=== PATIENT | male | born 1965 | race Caucasian/White ===

== ENCOUNTER 2020-02-07 10:08 | Emergency (ER) | payer MEDICAID ==
[~2020-02-07] VITALS: Ht 162.6 cm; Wt 77.1 kg
[2020-02-07 10:11] VITALS: BP 130/90
[2020-02-07 11:18] VITALS: BP 130/90
== END 2020-02-07 11:18 | disposition home or self-care (01) ==
LOC: MED 10:08
DX: T85.618A Breakdown (mechanical) of other specified internal prosthetic devices, implants and grafts, initial encounter (principal); Z98.890 Other specified postprocedural states; Y83.8 Other surgical procedures as the cause of abnormal reaction of the patient, or of later complication, without mention of misadventure at the time of the procedure
CPT/HCPCS: 71045; 99283; Q0092

== ENCOUNTER 2023-09-23 10:48 | Emergency (ER) | payer MEDICAID, OTHER ==
[~2023-09-23] VITALS: Ht 154.9 cm; Wt 79.4 kg
[2023-09-23 11:24] VITALS: BP 148/97; PULSE 119; RESP 20; TEMP 97.9; O2SAT 98
[2023-09-23 12:18] VITALS: BP 148/97; PULSE 119; RESP 20; TEMP 97.9
[2023-09-23 12:20] VITALS: O2SAT 98
[2023-09-23 13:47] LABS: APPEARANCE,URINE CLEAR (CLEAR); BILIRUBIN,URINE 1+ (NEGATIVE); BLOOD, URINE NEGATIVE (NEGATIVE); LEUKOCYTE ESTERASE ,URINE NEGATIVE (NEGATIVE); NITRITE, URINE NEGATIVE (NEGATIVE); PH,URINE 6.5 (5.0-9.0); PROTEIN,URINE 2+ (NEGATIVE); UGLUCOSE TRACE (NEGATIVE); UROBILINOGEN,URINE >=8.0 EU/dL (0.2 - 1)
[2023-09-23 13:53] LABS: COLOR,URINE ORANGE (YELLOW)
[2023-09-23 13:56] LABS: ICTOTEST NEGATIVE (NEGATIVE)
[2023-09-23] MEDS ORDERED: IBUP-2218 PO (13:56)
== END 2023-09-23 14:01 | disposition home or self-care (01) ==
LOC: MED 10:48
DX: S39.011A Strain of muscle, fascia and tendon of abdomen, initial encounter (principal); N50.3 Cyst of epididymis; Z79.899 Other long term (current) drug therapy; X58.XXXA Exposure to other specified factors, initial encounter; Y93.89 Activity, other specified; Y92.89 Other specified places as the place of occurrence of the external cause; Y99.8 Other external cause status
CPT/HCPCS: 76870; 81003; 87491; 99284; Q0092

== ENCOUNTER 2024-02-16 17:04 | Emergency (ER) | payer OTHER ==
[~2024-02-16] VITALS: Ht 165.1 cm; Wt 74.8 kg
[~2024-02-16 17:04] MED LIST: IBUP-2218 PO
[2024-02-16 17:09] VITALS: BP 146/79; PULSE 106; RESP 19; TEMP 98.6; O2SAT 95
[2024-02-16] MEDS: ONDANSETRON 4 MG/2 ML VIAL IVP ONE (18:10)
[2024-02-16] MEDS: NACL 0.9% 1,000 ML IV ONE (18:11)
[2024-02-16] MEDS: MORPHINE SULFATE 4 MG/ML SYR IVP ONE (18:11)
[2024-02-16 18:35] LABS: BASOPHILS % (AUTO) 0.4 % (0.0-2.0); EOSINOPHILS % (AUTO) 0.2 % (0.0-4.0); HEMATOCRIT 35.9 % (36-52); HEMOGLOBIN 12.4 g/dL (12.0-18.0); LYMPHOCYTES # (AUTO) 1.7 K/uL (2.0-11.5); LYMPHOCYTES % (AUTO) 17.2 % (20.5-51.1); MEAN CORPUSCULAR HEMOGLOBIN 28 pg (27-31); MEAN CORPUSCULAR HGB CONC 34 g/dL (33-37); MEAN CORPUSCULAR VOLUME 81.9 fL (80-94); MONOCYTES # (AUTO) 0.5 K/uL (0.8-1.0); MONOCYTES % (AUTO) 5.6 % (1.7-9.3); NEUTROPHILS # (AUTO) 7.4 K/uL (1.8-7.7); NEUTROPHILS % (AUTO) 76.6 % (42.2-75.2); PLATELET COUNT (AUTO) 275 K/uL (140-450); RED BLOOD CELL COUNT(AUTO) 4.38 MIL/uL (4.20-6.10); RED CELL DISTRIBUTION WIDTH 17.3 % (11.6-13.7); WHITE BLOOD COUNT (AUTO) 9.6 K/uL (4.8-10.8)
[2024-02-16 18:48] LABS: ANION GAP 13.7 (8-16); CALCIUM 9.6 mg/dL (8.5-10.1); CARBON DIOXIDE 29.4 mmol/L (21-32); CREATININE 0.9 mg/dL (0.6-1.3); POTASSIUM 4.1 mmol/L (3.5-5.1)
[2024-02-16 18:54] LABS: ALBUMIN 3.3 g/dL (3.4-5.0); BILIRUBIN,DIRECT 0.2 mg/dL (0.0-0.3); TOTAL PROTEIN, SERUM 7.2 g/dL (6.4-8.2)
[2024-02-16 20:19] LABS: APPEARANCE,URINE CLEAR (CLEAR); BILIRUBIN,URINE NEGATIVE (NEGATIVE); BLOOD, URINE NEGATIVE (NEGATIVE); COLOR,URINE YELLOW (YELLOW); LEUKOCYTE ESTERASE ,URINE NEGATIVE (NEGATIVE); NITRITE, URINE NEGATIVE (NEGATIVE); PH,URINE 6.5 (5.0-9.0); PROTEIN,URINE NEGATIVE (NEGATIVE); UGLUCOSE NEGATIVE (NEGATIVE); UROBILINOGEN,URINE 0.2 EU/dL (0.2 - 1)
[2024-02-16] MEDS ORDERED: MIRABULK PO (22:02)
[2024-02-16] MEDS ORDERED: DOCU-299 PO (22:02)
[2024-02-16 23:07] VITALS: BP 135/94; PULSE 87; RESP 16; TEMP 98.5; O2SAT 96
== END 2024-02-16 23:06 | disposition home or self-care (01) ==
LOC: MED 17:04
DX: R10.32 Left lower quadrant pain (principal); Z20.822 Contact with and (suspected) exposure to COVID-19; R74.01 Elevation of levels of liver transaminase levels; Z79.899 Other long term (current) drug therapy
CPT/HCPCS: 36415; 74177; 80048; 80076; 81003; 83605; 83690; 85025; 87426; 96361; 96374; 99285; J2405; J7030; Q9967; J2270